=== PATIENT | female | born 1970 | race Caucasian/White ===

== ENCOUNTER 2016-08-15 19:13 | Emergency (ER) | payer MEDICAID ==
[~2016-08-15] VITALS: Ht 160 cm; Wt 56.0 kg
[2016-08-15] MEDS ORDERED: ONDANSETRON HCL 4MG/2ML VIAL IV STA (20:57)
[2016-08-15] MEDS ORDERED: SODIUM CHLORIDE 0.9% 1,000 ML IV ONE (20:57)
[2016-08-15] MEDS ORDERED: MORPHINE SULFATE 4 MG/ML CPJ (NOT FOR IM USE) IV STA (20:57)
[2016-08-15 21:21] LABS: BASOPHILS % 0.6 % (0.0-2.0); EOSINOPHILS % 6.5 % (0.0-5.0); HEMATOCRIT. 39.2 % (36.0-48.0); HEMOGLOBIN. 12.9 g/dL (12.0-16.0); LYMPHOCYTES % 31.4 % (20.0-50.0); MEAN CORPUSCULAR HEMOGLOBIN 27.2 pg (28.0-32.0); MEAN CORPUSCULAR VOLUME 82.6 fL (81.0-99.0); MEAN PLATELET VOLUME 8.2 fl (7.4-10.4); MONOCYTES % 8.1 % (2.0-8.0); NEUTROPHILS % 53.4 % (40.0-76.0); PLATELET 246 x1000/uL (130-400); RED BLOOD CELL COUNT 4.75 mill/uL (4.2-5.4); RED CELL DISTRIBUTION WIDTH 16.2 % (11.6-14.6)
[2016-08-15 21:22] LABS: CLARITY URINE CLEAR (CLEAR); COLOR URINE YELLOW (YELLOW); GLUCOSE URINE NEGATIVE (NEGATIVE); KETONES URINE NEGATIVE (NEGATIVE); LEUKOCYTE ESTERASE URINE NEGATIVE (NEGATIVE); NITRITE URINE NEGATIVE (NEGATIVE); OCCULT BLOOD URINE NEGATIVE (NEGATIVE); PROTEIN URINE NEGATIVE (NEGATIVE); SPECIFIC GRAVITY URINE 1.026 (1.005-1.030)
[2016-08-15 21:27] LABS: CHLORIDE 108 mEq/L (98-107); INDEX HEMOLYSI 1 (1-3); INDEX ICTERIC 1 (1-4); INDEX LIPEMIC 1 (1-3)
[2016-08-15 21:28] LABS: PROTHROMBIN TIME 10.9 sec
[2016-08-15 21:31] LABS: ALBUMIN 3.4 g/dL (3.4-5.0); ANION GAP 11; CALCIUM 8.7 mg/dL (8.5-10.1); CARBON DIOXIDE 26 mEq/L (21-32); LIPASE 100 IU/L (73-393); UREA NITROGEN BLOOD 17 mg/dL (7-21)
[2016-08-15 21:32] LABS: ALANINE AMINOTRANSFERASE 18 IU/L (13-61); ETHANOL BLOOD < 10 mg/dL
[2016-08-15 21:33] LABS: HCG SCREEN NEGATIVE
[2016-08-15 21:37] LABS: eGFR > 60 mL/min (>60)
[2016-08-15 21:38] LABS: NT PRO B-TYPE NATRIURETIC PEP 112 pg/mL (5-125); TROPONIN I < 0.02 ng/mL (0.00-0.04)
[2016-08-15 21:50] LABS: *BARBITURATES SCREEN URINE NEGATIVE (NEGATIVE); *BENZODIAZEPINES SCREEN URINE NEGATIVE (NEGATIVE); *COCAINE SCREEN URINE NEGATIVE (NEGATIVE); ECSTASY MDMA SCREEN URINE NEGATIVE (NEGATIVE); METHADONE URINE SCREEN NEGATIVE (NEGATIVE); OPIATES URINE SCREEN NEGATIVE (NEGATIVE); PHENCYCLIDINE URINE SCREEN NEGATIVE (NEGATIVE)
[2016-08-15 21:51] LABS: *AMPHETAMINES SCREEN URINE PRESUMTIVE POSITIVE (NEGATIVE); CANNABINOID URINE SCREEN PRESUMTIVE POSITIVE (NEGATIVE)
[2016-08-16 00:51] VITALS: BP 96/62
== END 2016-08-16 01:04 | disposition home or self-care (01) ==
LOC: ER 20:42
DX: J40 Bronchitis, not specified as acute or chronic (principal); F15.10 Other stimulant abuse, uncomplicated; F17.200 Nicotine dependence, unspecified, uncomplicated
CPT/HCPCS: 36415; 70450; 71010; 74176; 80053; 80305; 81003; 83605; 83690; 83880; 84484; 84703; 85025; 85610; 93005; 96361; 96374; 96375; 99285; G0482; J2270; J2405; J7030; Z7610

== ENCOUNTER 2018-10-09 08:41 | Inpatient (IN) | payer SELFPAY ==
[~2018-10-09] VITALS: Ht 165.1 cm; Wt 56.7 kg
[2018-10-09] MEDS ORDERED: SODIUM CHLORIDE 0.9% 1,000 ML IV ONE (08:58)
[2018-10-09] MEDS ORDERED: LORAZEPAM 2MG/ML CPJ IV ONE (09:00)
[2018-10-09 09:15] LABS: BASOPHILS % 0.6 % (0.0-2.0); EOSINOPHILS % 2.4 % (0.0-5.0); HEMATOCRIT. 42.5 % (36.0-48.0); LYMPHOCYTES % 34.1 % (20.0-50.0); MEAN CORPUSCULAR HEMOGLOBIN 30.1 pg (28.0-32.0); MEAN CORPUSCULAR VOLUME 91.1 fL (81.0-99.0); MONOCYTES % 6.9 % (2.0-8.0); PLATELET 280 x1000/uL (130-400); RED BLOOD CELL COUNT 4.67 mill/uL (4.2-5.4); RED CELL DISTRIBUTION WIDTH 13.1 % (11.6-14.6)
[2018-10-09 09:19] LABS: CHLORIDE 108 mEq/L (98-107)
[2018-10-09 09:23] LABS: ETHANOL BLOOD < 10 mg/dL
[2018-10-09 09:29] LABS: HCG SCREEN NEGATIVE
[2018-10-09] MEDS ORDERED: ACETYLCYSTEINE IV ONE ×2 (09:45→10:00)
[2018-10-09] MEDS ORDERED: DEXT 5% IV ONE ×2 (09:45→10:00)
[2018-10-09] MEDS ORDERED: WATER IV ONE ×2 (09:45→10:00)
[2018-10-09] MEDS ORDERED: ACETYLCYSTEINE INJ 3,000 MG in DEXT 5% WATER 500 ML IV SCH (11:00)
[2018-10-09 11:54] LABS: *BARBITURATES SCREEN URINE NEGATIVE (NEGATIVE); *BENZODIAZEPINES SCREEN URINE NEGATIVE (NEGATIVE); *COCAINE SCREEN URINE NEGATIVE (NEGATIVE); METHADONE URINE SCREEN NEGATIVE (NEGATIVE)
[2018-10-09 11:55] LABS: *AMPHETAMINES SCREEN URINE PRESUMTIVE POSITIVE (NEGATIVE); CANNABINOID URINE SCREEN PRESUMTIVE POSITIVE (NEGATIVE); OPIATES URINE SCREEN NEGATIVE (NEGATIVE); PHENCYCLIDINE URINE SCREEN NEGATIVE (NEGATIVE)
[2018-10-09] MEDS ORDERED: ACETYLCYSTEINE INJ 6,000 MG in DEXTROSE 5% WATER 1,000 ML IV SCH ×2 (14:30→15:00)
[2018-10-09 14:31] LABS: CHLORIDE 108 mEq/L (98-107)
[2018-10-09] MEDS ORDERED: IPRATROPIUM/ALBUTEROL 0.5-3(2.5)MG/3ML NEB HHN PRN (15:30)
[2018-10-09 16:00] VITALS: BP 115/75
[2018-10-09] MEDS ORDERED: ACET-2178 MT (16:52)
[2018-10-09] MEDS ORDERED: DIPHENHYDRAMINE 50MG/ML VIAL IV PRN (17:45)
[2018-10-09] MEDS ORDERED: DOCUSATE SODIUM 100MG CAPSULE PO PRN (17:45)
[2018-10-09] MEDS ORDERED: NA PHOS,M-B/NA PHOS,DI-BA ENEMA 118ML PR PRN (17:45)
[2018-10-09] MEDS ORDERED: CLONIDINE 0.1MG TABLET PO PRN (17:45)
[2018-10-09] MEDS ORDERED: IPRATROPIUM/ALBUTEROL 0.5-3(2.5)MG/3ML NEB INH PRN (17:45)
[2018-10-09] MEDS ORDERED: GUAIFENESIN 200MG/10ML SUGAR FREE UDC PO PRN (17:45)
[2018-10-09] MEDS ORDERED: MAGNESIUM/ALUMINUM HYDROXIDE/SIMETHICONE 30ML UDC PO PRN (17:45)
[2018-10-09] MEDS ORDERED: ONDANSETRON HCL 4MG/2ML INJ IV PRN (17:45)
[2018-10-09] MEDS ORDERED: ACETYLCYSTEINE XX SCH (17:45)
[2018-10-09] MEDS ORDERED: SODIUM CHLORIDE 0.9% 1,000 ML IV SCH (18:00)
[2018-10-09 19:04] LABS: CHLORIDE 110 mEq/L (98-107)
[2018-10-09 20:00] VITALS: BP 125/78
[2018-10-09] MEDS: ENOXAPARIN 40MG/0.4ML SYR SUBCUT SCH (20:53)
[2018-10-09] MEDS: SODIUM CHLORIDE 0.9% INJ 3ML FLUSH IVF SCH (21:57)
[2018-10-10] VITALS: BP 117/70
[2018-10-10 01:03] LABS: CHLORIDE 111 mEq/L (98-107)
[2018-10-10] MEDS ORDERED: POTASSIUM CHLORIDE 20MEQ TABLET SR PO NR (01:30)
[2018-10-10 04:00] VITALS: BP 119/76
[2018-10-10] MEDS: SODIUM CHLORIDE 0.9% INJ 3ML FLUSH IVF SCH ×3 (05:14→21:02)
[2018-10-10 06:37] LABS: BASOPHILS % 0.4 % (0.0-2.0); EOSINOPHILS % 2.9 % (0.0-5.0); HEMATOCRIT. 42.2 % (36.0-48.0); HEMOGLOBIN. 13.9 g/dL (12.0-16.0); LYMPHOCYTES % 38.1 % (20.0-50.0); MEAN CORPUSCULAR HEMOGLOBIN 29.7 pg (28.0-32.0); MONOCYTES % 6.1 % (2.0-8.0); NEUTROPHILS % 52.5 % (40.0-76.0); PLATELET 269 x1000/uL (130-400); RED BLOOD CELL COUNT 4.69 mill/uL (4.2-5.4)
[2018-10-10 06:43] LABS: CHLORIDE 110 mEq/L (98-107)
[2018-10-10 07:04] LABS: LDL CHOLESTEROL 104 mg/dL (5-100)
[2018-10-10 07:05] LABS: HDL CHOLESTEROL 57 mg/dL (40-59)
[2018-10-10 08:00] VITALS: BP 108/57
[2018-10-10] MEDS: NICOTINE 14MG PATCH TD SCH (10:13)
[2018-10-10 12:01] VITALS: BP 121/74
[2018-10-10 15:50] LABS: CHLORIDE 111 mEq/L (98-107)
[2018-10-10 16:00] VITALS: BP 104/71
[2018-10-10 20:00] VITALS: BP 102/64
[2018-10-10 20:25] LABS: CHLORIDE 110 mEq/L (98-107)
[2018-10-10] MEDS ORDERED: QUETIAPINE FUMARATE 50MG TABLET PO SCH (21:00)
[2018-10-10] MEDS: ENOXAPARIN 40MG/0.4ML SYR SUBCUT SCH (21:02)
[2018-10-11] VITALS: BP 109/66
[2018-10-11 01:21] LABS: CHLORIDE 111 mEq/L (98-107)
[2018-10-11 04:00] VITALS: BP 103/69
[2018-10-11] MEDS: SODIUM CHLORIDE 0.9% INJ 3ML FLUSH IVF SCH ×3 (06:00→21:09)
[2018-10-11 07:01] LABS: CHLORIDE 110 mEq/L (98-107)
[2018-10-11 08:00] VITALS: BP 107/71
[2018-10-11] MEDS: NICOTINE 14MG PATCH TD SCH (09:00)
[2018-10-11 12:00] VITALS: BP 110/70
[2018-10-11] MEDS: QUETIAPINE FUMARATE 50MG TABLET PO SCH ×2 (13:42→18:08)
[2018-10-11 16:00] VITALS: BP 108/69
[2018-10-11] MEDS ORDERED: QUETIAPINE FUMARATE 50MG TABLET PO SCH (17:00)
[2018-10-11 20:00] VITALS: BP 100/62
[2018-10-11] MEDS: ENOXAPARIN 40MG/0.4ML SYR SUBCUT SCH (20:00)
[2018-10-11] MEDS: DIPHENHYDRAMINE 50MG CAPSULE PO PRN (21:09)
[2018-10-12] MEDS: SODIUM CHLORIDE 0.9% INJ 3ML FLUSH IVF SCH ×3 (06:00→22:17)
[2018-10-12] MEDS: NICOTINE 14MG PATCH TD SCH (08:31)
[2018-10-12] MEDS: QUETIAPINE FUMARATE 50MG TABLET PO SCH ×2 (08:31→17:24)
[2018-10-12 17:09] LABS: CHLORIDE 108 mEq/L (98-107)
[2018-10-12 20:00] VITALS: BP 107/71
[2018-10-12] MEDS: DIPHENHYDRAMINE 50MG CAPSULE PO PRN (20:19)
[2018-10-12] MEDS: ENOXAPARIN 40MG/0.4ML SYR SUBCUT SCH (20:21)
[2018-10-12 23:59] VITALS: BP 118/70
[2018-10-13 04:00] VITALS: BP 109/79
[2018-10-13] MEDS: SODIUM CHLORIDE 0.9% INJ 3ML FLUSH IVF SCH ×2 (05:54→14:00)
[2018-10-13 08:00] VITALS: BP 115/66
[2018-10-13] MEDS: QUETIAPINE FUMARATE 50MG TABLET PO SCH (09:45)
[2018-10-13] MEDS: NICOTINE 14MG PATCH TD SCH (09:46)
[2018-10-13 12:00] VITALS: BP 114/64
[2018-10-13 16:00] VITALS: BP 106/63
== END 2018-10-13 19:00 | disposition left against medical advice (07) | DRG 812 ==
LOC: ER 08:41 → 5WST 14:06 → ENRESERV 14:33
PROVIDERS: ADMIT Family Medicine; ATTEND Family Medicine
DX: T39.1X1A Poisoning by 4-Aminophenol derivatives, accidental (unintentional), initial encounter (principal); G92 Toxic encephalopathy; J68.0 Bronchitis and pneumonitis due to chemicals, gases, fumes and vapors; R45.851 Suicidal ideations; T39.011A Poisoning by aspirin, accidental (unintentional), initial encounter; T43.621A Poisoning by amphetamines, accidental (unintentional), initial encounter; F12.90 Cannabis use, unspecified, uncomplicated; F15.10 Other stimulant abuse, uncomplicated; F17.210 Nicotine dependence, cigarettes, uncomplicated; F41.9 Anxiety disorder, unspecified; Y92.89 Other specified places as the place of occurrence of the external cause; Z59.0 Homelessness
CPT/HCPCS: 36415; 71045; 80061; 80305; 80307; 80320; 80329; 82962; 84703; 93005; 96365; 96375; 97161; 99285; J0132; J1650; J2060; J7030; J7060; J7070; Q0163; A4315; G0480

== ENCOUNTER 2019-03-12 09:27 | Emergency (ER) | payer MEDICAID ==
[~2019-03-12] VITALS: Ht 160 cm; Wt 50.0 kg
[~2019-03-12 09:27] MED LIST: TOPUD MT
[2019-03-12] MEDS ORDERED: ACETAMINOPHEN 500MG TABLET PO ONE (11:30)
[2019-03-12] MEDS ORDERED: NICOTINE 21MG PATCH TD ONE (19:15)
[2019-03-12 20:49] LABS: *BARBITURATES SCREEN URINE NEGATIVE (NEGATIVE); *BENZODIAZEPINES SCREEN URINE NEGATIVE (NEGATIVE)
[2019-03-12 20:50] LABS: *COCAINE SCREEN URINE NEGATIVE (NEGATIVE); METHADONE URINE SCREEN NEGATIVE (NEGATIVE)
[2019-03-12 20:51] LABS: OPIATES URINE SCREEN NEGATIVE (NEGATIVE); PHENCYCLIDINE URINE SCREEN NEGATIVE (NEGATIVE)
[2019-03-12 20:52] LABS: *AMPHETAMINES SCREEN URINE PRESUMTIVE POSITIVE (NEGATIVE); CANNABINOID URINE SCREEN PRESUMTIVE POSITIVE (NEGATIVE)
[2019-03-13 14:05] VITALS: BP 112/58
== END 2019-03-13 14:07 | disposition home or self-care (01) ==
LOC: ER 09:27
DX: S82.292A Other fracture of shaft of left tibia, initial encounter for closed fracture (principal); W01.0XXA Fall on same level from slipping, tripping and stumbling without subsequent striking against object, initial encounter; Y93.02 Activity, running; Y92.89 Other specified places as the place of occurrence of the external cause; Z59.0 Homelessness
CPT/HCPCS: 73562; 80305; 99284; L1830

== ENCOUNTER 2021-04-18 17:26 | Emergency (ER) | payer MEDICAID ==
[~2021-04-18] VITALS: Ht 160 cm; Wt 50.0 kg
[2021-04-18 17:28] VITALS: BP 104/69
[2021-04-18 18:47] LABS: BASOPHILS % 0.3 % (0.0-2.0); EOSINOPHILS % 2.3 % (0.0-5.0); HEMATOCRIT. 41.3 % (36.0-48.0); HEMOGLOBIN. 13.7 g/dL (12.0-16.0); LYMPHOCYTES % 47.1 % (20.0-50.0); MEAN CORPUSCULAR HEMOGLOBIN 29.2 pg (28.0-32.0); MEAN CORPUSCULAR VOLUME 88.1 fL (81.0-99.0); MEAN PLATELET VOLUME 7.7 fl (7.4-10.4); MONOCYTES % 7.6 % (2.0-8.0); NEUTROPHILS % 42.7 % (40.0-76.0); PLATELET 423 x1000/uL (130-400); RED BLOOD CELL COUNT 4.69 mill/uL (4.2-5.4); RED CELL DISTRIBUTION WIDTH 13.3 % (11.6-14.6)
[2021-04-18 18:52] LABS: CHLORIDE 109 mEq/L (98-107)
[2021-04-18 19:01] LABS: CREATINE KINASE 89 IU/L (26-192)
== END 2021-04-18 19:20 | disposition home or self-care (01) ==
LOC: ER 17:26
DX: G47.62 Sleep related leg cramps (principal)
CPT/HCPCS: 36415; 71045; 80053; 82550; 85025; 99284

== ENCOUNTER 2022-05-01 07:51 | Emergency (ER) | payer MEDICAID ==
[~2022-05-01] VITALS: Ht 160 cm; Wt 48.0 kg
[2022-05-01 07:55] VITALS: BP 105/66
== END 2022-05-01 10:05 | disposition home or self-care (01) ==
LOC: ER 08:06
DX: S29.8XXA Other specified injuries of thorax, initial encounter (principal); Y08.89XA Assault by other specified means, initial encounter; Y93.89 Activity, other specified; Y92.89 Other specified places as the place of occurrence of the external cause
CPT/HCPCS: 71046; 81025; 99283